=== PATIENT | male | born 1995 | race African-American/Black ===

== ENCOUNTER 2022-03-04 02:49 | Emergency (ER) | payer SELFPAY ==
[~2022-03-04] VITALS: Ht 180.3 cm; Wt 99.8 kg
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
[2022-03-04] MEDS ORDERED: FLUORESCEIN SODIUM OPHTH 1 EA STRIP OP ONE (03:30)
[2022-03-04] MEDS ORDERED: CYCLOPENTOLATE 1% OPHTHALMIC 2 ML BOTTLE OP ONE (03:30)
[2022-03-04] MEDS ORDERED: TONO PEN in ED SUPPLY ONICELL 1 EA MC ONE (03:30)
[2022-03-04] MEDS ORDERED: FLUORESCEIN SODIUM OPHTH 1 EA STRIP ONE (03:34)
[2022-03-04] MEDS ORDERED: IOHEXOL-300 100 ML VIAL IV ONE (03:36)
[2022-03-04] MEDS ORDERED: IV NS 0.9% 250 ML IV ONE (03:37)
[2022-03-04] MEDS ORDERED: CT SWABBABLE VALVE TRANS SET 1 EA INFUS.SET MC ONE (03:37)
--- NOTE | 2022-03-04 03:37 | NUR ---
AT BED SIDE
[2022-03-04] MEDS ORDERED: CYCLOPENTOLATE 1% OPHTHALMIC 2 ML BOTTLE ONE (03:47)
[2022-03-04] MEDS ORDERED: CYCL2DRO2 RIGHTEYE (03:48)
[2022-03-04] MEDS ORDERED: OFLO5DRO RIGHTEYE (03:48)
--- NOTE | 2022-03-04 03:50 | NUR ---
PT. BEING TRANSPORTED TO CT.
--- NOTE | 2022-03-04 04:03 | NUR ---
BACK FROM CT
--- NOTE | 2022-03-04 04:27 | NUR ---
IV removed. Catheter intact and site benign. Pressure and 4x4 applied to site. No bleeding noted.
--- NOTE | 2022-03-04 06:28 | NUR ---
Patient discharged to home in stable condition. Written and verbal after care instructions given. Patient verbalizes understanding of instruction.
[2022-03-04 06:29] VITALS: BP 142/88
== END 2022-03-04 06:29 | disposition home or self-care (01) ==
LOC: ER 02:51
DX: H20.9 Unspecified iridocyclitis (principal); H57.11 Ocular pain, right eye; J45.909 Unspecified asthma, uncomplicated; Z60.2 Problems related to living alone; Z79.899 Other long term (current) drug therapy
CPT/HCPCS: 99285; 70481; J7050; Q9967